=== PATIENT | male | born 1965 | race Caucasian/White ===

== ENCOUNTER 2019-03-04 09:55 | Day surgery (SDC) | payer BC ==
[~2019-03-04] VITALS: Ht 175.3 cm; Wt 72.6 kg
[~2019-03-04 09:55] MED LIST: BL IBUPROFEN200 MG PO; DIAZEPAM5 MG PO
[2019-03-04 10:59] LABS: COCAINE NEGATIVE (NEGATIVE); METHADONE NEGATIVE (NEGATIVE); TETRAHYDROCANNABIONOL POSITIVE (NEGATIVE)
[2019-03-04 11:00] LABS: BARBITURATES NEGATIVE (NEGATIVE); OXCYCODONE NEGATIVE (NEGATIVE); TRICYLIC ANTIDEPRESSANTS NEGATIVE (NEGATIVE)
[2019-03-04 13:06] VITALS: BP 120/78
== END 2019-03-04 12:35 | disposition home or self-care (01) | DRG 951 ==
LOC: ENDO 09:55
PROVIDERS: ATTEND Surgery
PROC: 0DBH8ZX Excision of Cecum, Via Natural or Artificial Opening Endoscopic, Diagnostic (ICD-10-PCS; principal; 2019-03-04)
PROC: 0HB6XZZ Excision of Back Skin, External Approach (ICD-10-PCS; 2019-03-04)
DX: Z12.11 Encounter for screening for malignant neoplasm of colon (principal); K63.5 Polyp of colon; K63.4 Enteroptosis; L72.3 Sebaceous cyst

== ENCOUNTER 2021-04-24 07:24 | Day surgery (SDC) | payer OTHER ==
[~2021-04-24] VITALS: Ht 175.3 cm; Wt 72.6 kg
[2021-04-24] MEDS ORDERED: OMEPRAZOLE20 MG PO (08:51)
[2021-04-24 09:34] VITALS: BP 129/87
== END 2021-04-24 09:34 | disposition home or self-care (01) | DRG 382 ==
LOC: ENDO 07:24 → ORM 08:55 → ENDO 09:34 → ORM 09:35
PROVIDERS: ATTEND Surgery
PROC: 0DB48ZX Excision of Esophagogastric Junction, Via Natural or Artificial Opening Endoscopic, Diagnostic (ICD-10-PCS; principal; 2021-04-24)
PROC: 0DB78ZX Excision of Stomach, Pylorus, Via Natural or Artificial Opening Endoscopic, Diagnostic (ICD-10-PCS; 2021-04-24)
DX: K22.10 Ulcer of esophagus without bleeding (principal); K29.70 Gastritis, unspecified, without bleeding; K44.9 Diaphragmatic hernia without obstruction or gangrene; K25.9 Gastric ulcer, unspecified as acute or chronic, without hemorrhage or perforation; K13.21 Leukoplakia of oral mucosa, including tongue